=== PATIENT | female | born 1945 | race Caucasian/White ===

== ENCOUNTER 2024-01-27 14:19 | Inpatient (IN) | payer OTHER ==
[2024-01-27 17:31] VITALS: BMI 23.3
[2024-01-27] MEDS ORDERED: Calcium Carbonate 500 MG ChewTAB PO PRN (18:03)
[2024-01-27] MEDS: HYDROcodone/Acetaminophen 7.5/325 mg Tablet PO SCH (18:45)
[2024-01-27] MEDS: FLU (Fluad Triv) TS24-25 (65UP)/MF59C/PF 45 MCG/0.5 ML Syringe IM ONE (18:45)
[2024-01-27] MEDS: Pantoprazole DR 40 MG TAB PO SCH ×2 (19:44→19:50)
[2024-01-27] MEDS: Nitrofurantoin Monohyd/M-Cryst 100 MG CAP PO SCH (19:45)
[2024-01-27] MEDS: Mag-Al Plus 1200/1200/120 MG (30 mL) UDCUP PO PRN (19:52)
[2024-01-27] MEDS: Naproxen 500 MG TAB PO SCH (20:43)
[2024-01-27] MEDS ORDERED: Famotidine 20 MG TAB PO SCH (21:00)
[2024-01-28] MEDS: Diazepam 5 MG TAB PO PRN (00:12)
[2024-01-28 07:43] LABS: #Eosinophils 0.3 thou/uL (0.0-0.7); #Lymphocytes 1.2 thou/uL (1.20-3.40); #Monocytes 0.9 thou/uL (0.11-0.59); #Neutrophils 6.3 thou/uL (1.40-6.50); %Basophils 0.4 % (0.0-1.0); %Eosinophils 3.2 % (0.0-10.0); %Lymphocytes 14.1 % (21.0-51.0); %Monocytes 9.9 % (0.0-10.0); %Neutrophils 72.4 % (42.0-75.0); Hematocrit 31.6 % (36.0-47.0); Hemoglobin 9.6 g/dL (12.0-16.0); Mean Corpuscular HGB CONC 30.2 g/dL (32.0-36.0); Mean Corpuscular Hemoglobin 19.8 pg (27.0-31.0); Mean Corpuscular Volume 65.4 fl (78.0-98.0); Mean Platelet Volume 6.6 fL (7.4-10.4); Platelet Count 342 10x3/uL (130-400); RBC Distribution Width 12.9 % (11.5-14.5); Red Blood Cell (RBC) Count 4.83 mill/uL (4.20-5.40); White Blood Cell (WBC) Count 8.8 10x3/uL (4.8-10.8)
[2024-01-28 07:57] LABS: ALT (SGPT) 17 U/L (8-55); AST (SGOT) 16 U/L (5-34); Albumin 3.1 g/dL (3.4-4.8); Alkaline Phosphatase 79 U/L (40-110); Anion Gap 18 mmol/L (10-20); BUN (Urea Nitrogen) 12 mg/dL (9.8-20.1); Bilirubin, Total 0.8 mg/dL (0.2-1.2); Calc. Creatinine Clearance 74 mL/min (70-130); Calcium 8.9 mg/dL (7.8-10.44); Carbon Dioxide 24 mmol/L (23-31); Chloride 101 mmol/L (98-107); Estimated GFR 84; Globulin 3.1 g/dL (2.4-3.5); Glucose 113 mg/dL (83-110); Protein, Total 6.2 g/dL (5.8-8.1); Sodium 139 mmol/L (136-145)
[2024-01-28] MEDS: BuPROPion XL 150 MG ER.TAB PO SCH (08:25)
[2024-01-28] MEDS: Polyethylene Glycol 3350 17 GM Packet PO PRN (08:30)
[2024-01-28] MEDS: Acetaminophen/Codeine 30-300mg Tablet PO SCH (09:13)
[2024-01-28] MEDS: Diclofenac 1% 100 GM Topical GEL TP SCH ×2 (09:15→12:48)
[2024-01-28] MEDS: Senokot S 8.6-50 MG TAB PO PRN (09:51)
[2024-01-28] MEDS: Diclofenac 1% 50 GM TOPICAL GEL TP SCH (10:14)
[2024-01-28] MEDS: HYDROcodone/Acetaminophen 5/325 mg Tablet PO PRN (12:11)
[2024-01-28] MEDS ORDERED: Polyethylene Glycol 3350 17 GM Packet PO SCH (12:45)
[2024-01-28] MEDS: Milk Of Magnesia 30 ML UDCUP PO PRN (12:48)
[2024-01-28] MEDS: Senokot S 8.6-50 MG TAB PO SCH (20:46)
[2024-01-29] MEDS: Polyethylene Glycol 3350 17 GM Packet PO SCH (07:45)
[2024-01-29] MEDS ORDERED: Loperamide HCl 2 MG CAP PO PRN (08:19)
[2024-01-29] MEDS ORDERED: Senokot S 8.6-50 MG TAB PO PRN (08:19)
[2024-01-29] MEDS: Pantoprazole DR 40 MG TAB PO SCH (09:09)
[2024-01-30 06:07] LABS: #Basophils 0.1 thou/uL (0.0-0.2); #Eosinophils 0.4 thou/uL (0.0-0.7); #Lymphocytes 1.2 thou/uL (1.20-3.40); #Monocytes 0.7 thou/uL (0.11-0.59); #Neutrophils 4.5 thou/uL (1.40-6.50); %Basophils 0.9 % (0.0-1.0); %Eosinophils 5.7 % (0.0-10.0); %Lymphocytes 17.8 % (21.0-51.0); %Monocytes 10.1 % (0.0-10.0); %Neutrophils 65.5 % (42.0-75.0); Hematocrit 27.8 % (36.0-47.0); Hemoglobin 8.5 g/dL (12.0-16.0); Mean Corpuscular HGB CONC 30.6 g/dL (32.0-36.0); Mean Corpuscular Hemoglobin 19.7 pg (27.0-31.0); Mean Corpuscular Volume 64.5 fl (78.0-98.0); Mean Platelet Volume 6.5 fL (7.4-10.4); Platelet Count 415 10x3/uL (130-400); RBC Distribution Width 12.2 % (11.5-14.5); White Blood Cell (WBC) Count 6.8 10x3/uL (4.8-10.8)
[2024-01-30 06:20] LABS: ALT (SGPT) 19 U/L (8-55); AST (SGOT) 20 U/L (5-34); Albumin 2.9 g/dL (3.4-4.8); Alkaline Phosphatase 83 U/L (40-110); Anion Gap 14 mmol/L (10-20); BUN (Urea Nitrogen) 11 mg/dL (9.8-20.1); Bilirubin, Total 0.5 mg/dL (0.2-1.2); Calc. Creatinine Clearance 73 mL/min (70-130); Calcium 9.3 mg/dL (7.8-10.44); Carbon Dioxide 25 mmol/L (23-31); Chloride 106 mmol/L (98-107); Estimated GFR 83; Globulin 3.5 g/dL (2.4-3.5); Glucose 122 mg/dL (83-110); Protein, Total 6.4 g/dL (5.8-8.1); Sodium 141 mmol/L (136-145)
[2024-01-30] MEDS: HYDROcodone/Acetaminophen 5/325 mg Tablet PO PRN (07:46)
[2024-01-30] MEDS: Loratadine 10 MG TAB PO PRN (12:45)
[2024-01-30 16:00] LABS: Iron 11 ug/dL (50-170); Iron Binding Capacity, Total 166 mcg/dL (265-497)
[2024-01-31] MEDS: Fluticasone Propionate Nasal Spray 16 gm Bottle NASAL SCH (07:52)
[2024-02-04] MEDS: Ferrous Sulfate 325 MG TAB PO SCH (17:12)
[2024-02-04] MEDS: Ascorbic Acid 500 mg Chewable Tablet PO SCH (17:12)
[2024-02-05] MEDS ORDERED: HYDROcodone/Acetaminophen 10/325 mg Tablet PO PRN (10:07)
[2024-02-05] MEDS: HYDROcodone/Acetaminophen 10/325 mg Tablet PO PRN (12:32)
[2024-02-05] MEDS: Polyethylene Glycol 3350 17 GM Packet PO PRN (12:39)
[2024-02-06 15:58] VITALS: BMI 22.3
[2024-02-07 07:45] VITALS: BP 108/57; TEMP 98.7
== END 2024-02-07 12:45 | disposition home or self-care (01) | DRG 948 ==
LOC: NAV ACUTE 17:04
PROVIDERS: ADMIT Student in an Organized Health Care Education/Training Program; ATTEND Student in an Organized Health Care Education/Training Program
DX: R53.81 Other malaise (principal); N39.0 Urinary tract infection, site not specified; F32.A Depression, unspecified; M19.90 Unspecified osteoarthritis, unspecified site; M48.062 Spinal stenosis, lumbar region with neurogenic claudication; K21.9 Gastro-esophageal reflux disease without esophagitis; K59.00 Constipation, unspecified; Z98.890 Other specified postprocedural states; Z96.651 Presence of right artificial knee joint; D56.9 Thalassemia, unspecified; Z47.89 Encounter for other orthopedic aftercare; Z79.899 Other long term (current) drug therapy; Z87.891 Personal history of nicotine dependence
CPT/HCPCS: 36415; 80053; 83540; 83550; 85025